=== PATIENT | female | born 1950 | race African-American/Black ===

== ENCOUNTER 2019-03-19 11:06 | Day surgery (SDC) | payer OTHER ==
[2019-03-07 16:19] VITALS: BMI 30.2
[2019-03-19] MEDS ORDERED: CYCLOPENTOLATE HCL 1% OPHTH SOLN 2 ML BOTTLE ONE (11:10)
[2019-03-19] MEDS ORDERED: OFLOXACIN 0.3% OPHTHALMIC SOLUTION 5 ML BOTTLE ONE (11:10)
[2019-03-19] MEDS ORDERED: KETOROLAC TROMETHAMINE 0.5% EYE DROP 1 DROP DROPS ONE (11:11)
[2019-03-19] MEDS ORDERED: TROPICAMIDE 1% OPHTH SOLN 15 ML BOTTLE ONE (11:11)
[2019-03-19] MEDS ORDERED: PHENYLEPHRINE 2.5% OPHTH SOLN 15 ML BOTTLE ONE (11:11)
[2019-03-19] MEDS ORDERED: EPI-SHUGARCAINE (EPINEPHRINE 0.025% & LIDOCAINE-PF 0.75%) 4ML ONE (11:17)
[2019-03-19] MEDS ORDERED: BETAXOLOL HCL 0.25% OPHTHALMIC 10 ML DROPSBTL ONE ×2 (11:17→11:19)
[2019-03-19] MEDS ORDERED: BACITRACIN/POLYMYXIN OPH OINT 3.5 GM TUBE ONE ×2 (11:17→11:19)
[2019-03-19] MEDS ORDERED: TRYPAN BLUE 0.5 ML DISP.SYRIN ONE (11:18)
[2019-03-19] MEDS ORDERED: TETRACAINE 0.5% OPHTH SOLN 2 ML BOTTLE ONE (11:19)
[2019-03-19] MEDS ORDERED: POVIDONE-IODINE 5% OPHTHALMIC PREP 30 ML SOLUTION ONE (11:19)
[2019-03-19] MEDS ORDERED: ACETYLCHOLINE 1:100 INTRA-OCUL 20 MG/2 ML KIT ONE (11:19)
[2019-03-19] MEDS ORDERED: NEO/POLYMYX B SULF/DEXAMETH OPHTHALMIC 5ML BOTTLE ONE (11:19)
[2019-03-19] MEDS: OFLOXACIN 0.3% OPHTHALMIC SOLUTION 5 ML BOTTLE OS SCH ×5 (11:25→11:45)
[2019-03-19] MEDS: TROPICAMIDE 1% OPHTH SOLN 15 ML BOTTLE OS SCH ×5 (11:25→11:45)
[2019-03-19] MEDS: KETOROLAC TROMETHAMINE 0.5% EYE DROP 1 DROP DROPS OS SCH ×5 (11:25→11:45)
[2019-03-19] MEDS: PHENYLEPHRINE 2.5% OPHTH SOLN 15 ML BOTTLE OS SCH ×5 (11:25→11:45)
[2019-03-19] MEDS: CYCLOPENTOLATE HCL 1% OPHTH SOLN 2 ML BOTTLE OS SCH ×5 (11:25→11:45)
[2019-03-19] MEDS ORDERED: MIDAZOLAM HCL 2 MG/2 ML SINGLE DOSE VIAL ONE (12:24)
[2019-03-19] MEDS ORDERED: ONDANSETRON 4 MG/2 ML VIAL ONE (12:25)
[2019-03-19] MEDS ORDERED: BSS (NA/CA/MG/K) BALANCED SALT SOLUTION OPHTH SOLN 15 ML BOTTLE ONE (13:06)
[2019-03-19] MEDS ORDERED: ACETAMINOPHEN 325 MG TABLET (FP) PO PRN (13:22)
[2019-03-19 13:38] VITALS: TEMP 97.8
[2019-03-19 14:00] VITALS: BP 159/62; PULSE 65
--- NOTE | 2019-03-19 14:18 | OP ---
DATE OF OPERATION: 03/19/2019 AGE: [age] years old. SEX: Female. PREOPERATIVE DIAGNOSIS: Hypermature cataract, left eye; pupillary miosis, left eye. POSTOPERATIVE DIAGNOSIS: Hypermature cataract, left eye; pupillary miosis, left eye. PROCEDURE: Hypermature cataract extraction via phacoemulsification with insertion of posterior chamber lens implant, left eye; pupillary miosis, left eye, using iris hooks; use of trypan blue. SURGEON: Jose Antonio Renteria MD FREIGHT BROKER: Lexi Cartagena MD ANESTHESIA: Topical with sedation. ESTIMATED BLOOD LOSS: Less than 1 mL. COMPLICATIONS: None. SPECIMENS: None. PROCEDURE: The patient was identified in the holding area. After all risks, benefits and alternatives were explained to the patient, informed consent was obtained. The left eye was marked with a marking pen. The patient then entered the operating room on an eye stretcher. After formal timeout was performed, topical tetracaine eyedrops were instilled onto the left eye. The left eye was then prepped and draped in the usual sterile fashion. Eyelid speculum was then placed beneath the eyelids of the left eye. Then, 5 equally-spaced paracentesis incisions were created using a 15-degree blade and 5 iris hooks were inserted through each of the paracentesis incisions to capture and dilate the pupil to about 7 mm. Then, preservative-free epinephrine and preservative-free lidocaine was then injected into the anterior chamber. Then an intracameral air bubble was injected and trypan blue was injected underneath the air bubble to stain the anterior capsule. Viscoelastic was then injected in the anterior chamber to replace the air bubble and excess trypan blue. A 2.4-mm keratome blade was then used to make a superotemporal incision. A 360-degree continuous curvilinear capsulorrhexis was then created using bent cystotome and Utrata forceps. Hydrodissection was performed using balanced saline solution on a cannula. Phacoemulsification was introduced to disassemble and remove the nucleus in its entirety. Irrigation/aspiration was then used to remove any remaining cortical material from the eye. The capsular bag was re-formed using viscoelastic. An Junito model [id number] with a power of 22.0 diopters, serial number [id number] was inspected and found to be defect free and injected in the capsular bag. Irrigation/aspiration was then used to remove any remaining viscoelastic from the eye. The anterior chamber was reformed using balanced saline solution. Intracameral injection of Miochol was then administered and the pupil came down and was round. All wounds were hydrated with balanced saline solution and all of the remaining iris hooks were removed from the eye, totaling 5. A final irrigation/aspiration was then used to remove any remaining excess debris from the eye. All wounds again were hydrated with balanced saline solution and noted to be watertight. There was a red reflex present. The anterior chamber was deep. The lens was perfectly centered in the capsular bag, and the eye had adequate pressure. Topical antibiotic eyedrops and ointment were then administered to the left eye. The eyelid speculum was removed from the left eye. The left eye was shielded. The patient tolerated the procedure well and left the operating room in stable condition, to follow up in the eye clinic tomorrow morning at 10 o'clock. Sim [id number]
== END 2019-03-19 14:05 | disposition home or self-care (01) ==
LOC: FASU 11:06
PROVIDERS: ATTEND Ophthalmology
PROC: 08RK3JZ Replacement of Left Lens with Synthetic Substitute, Percutaneous Approach (ICD-10-PCS; principal; 2019-03-19 12:42)
DX: H25.22 Age-related cataract, morgagnian type, left eye (principal); H57.03 Miosis